=== PATIENT | male | born 1995 | race Caucasian/White ===

== ENCOUNTER 2020-07-04 13:37 | Emergency (ER) | payer OTHER ==
[~2020-07-04] VITALS: Ht 172.7 cm; Wt 63.6 kg
[~2020-07-04 13:37] MED LIST: ALBUTEROL0.83 MG/ML IH; PROAIR
[2020-07-04 13:47] VITALS: TEMP 98.8
[2020-07-04 15:31] LABS: BASO # 0.1 (0.0-0.2); BASO % 0.4 % (0.0-2.0); EOS # 0.1 (0.0-0.7); EOS % 0.5 % (0-4.0); GRAN # 10.6 (1.4-6.5); GRAN % 80.8 % (42.2-75.2); HEMATOCRIT 44.3 % (42.0-52.0); HEMOGLOBIN 15.9 g/dl (13.5-18.0); LYMPH # 1.5 (1.2-3.4); LYMPH % 11.8 % (20.0-51.0); MEAN CELL VOLUME 84 fl (80.0-100.0); MEAN CORPUSCULAR HEMOGLOBIN 30 pg (27.0-31.0); MEAN CORPUSCULAR HGB CONC 36 g/dl (33.0-37.0); MEAN PLATELET VOLUME 9.4 fl (7.4-10.4); MONO # 0.8 (0.1-0.6); MONO % 6.2 % (1.7-9.3); PLATELET COUNT 273 K/mm3 (130-400); RED BLOOD COUNT 5.27 M/mm3 (4.20-5.60); REDCELL DISTRIBUTION WIDTH-CV 12.5 % (11.5-14.5)
[2020-07-04 15:52] LABS: ALANINE AMINOTRANSFERASE 31 U/L (4-49); ALBUMIN 5.2 gm/dL (3.5-5.0); ALKALINE PHOSPHATASE 111 U/L (50-136); ANION GAP 13 mmol/L (7-16); AST,SGOT 31 U/L (15-37); BILIRUBIN,TOTAL 0.7 mg/dL (0.0-1.0); BLOOD UREA NITROGEN 18 mg/dL (9-20); CALCIUM 10.1 mg/dL (8.4-10.2); CARBON DIOXIDE 22 mmol/L (22-30); CHLORIDE 105 mmol/L (98-107); CREATININE, serum 0.71 (0.66-1.25); GLUCOSE 93 mg/dL (74-106); LIPASE 54 U/L (23-300); POTASSIUM 4.2 mmol/L (3.4-5.0); SODIUM 140 mmol/L (137-145); TOTAL PROTEIN 8.5 gm/dL (6.4-8.2)
[2020-07-04 15:54] LABS: C-REACTIVE PROTEIN < 0.5 mg/dL (0.0-0.9)
[2020-07-04 16:29] LABS: COLLECTION METHOD CLEAN CATCH
[2020-07-04 16:37] LABS: MUCOUS Present /lpf; PH 7 (5-8); SQUAMOUS EPITHELIAL None Seen /hpf; URINE APPEARANCE Hazy; URINE BACTERIA None Seen /hpf; URINE BILIRUBIN Negative (NEGATIVE); URINE BLOOD Negative (NEGATIVE); URINE COLOR Yellow; URINE GLUCOSE Negative (NEGATIVE); URINE KETONE 2+ (NEGATIVE); URINE LEUKOCYTE ESTERASE Negative (NEGATIVE); URINE NITRATE Negative (NEGATIVE); URINE PROTEIN(semi-quant) 1+ (NEGATIVE); URINE RBC 0-2 /hpf; URINE UROBILINOGEN Negative (NEGATIVE)
[2020-07-04 16:51] VITALS: BP 128/78; PULSE 98
== END 2020-07-04 16:53 | disposition home or self-care (01) ==
LOC: COL.ER 13:37
PROVIDERS: Nurse Practitioner Primary Care
DX: R10.9 Unspecified abdominal pain (principal); R11.2 Nausea with vomiting, unspecified
CPT/HCPCS: J0780; J7030